=== PATIENT | female | born 1990 | race Caucasian/White ===

== ENCOUNTER → 2024-03-14 13:31 | Outpatient (REF) | payer OTHER, SELFPAY | LOC: PNTC 13:31 | PROVIDERS: ATTENDING PHYSICIAN Obstetrics & Gynecology | DX: O99.210 Obesity complicating pregnancy, unspecified trimester (principal) | CPT/HCPCS: 76805 ==

== ENCOUNTER → 2024-08-17 14:25 | Outpatient (REF) | payer OTHER, SELFPAY | LOC: PNTC 14:25 | PROVIDERS: ATTENDING PHYSICIAN Obstetrics & Gynecology | DX: O14.90 Unspecified pre-eclampsia, unspecified trimester (principal) | CPT/HCPCS: 59025 ==

== ENCOUNTER → 2024-08-23 08:54 | Outpatient (REF) | payer OTHER, SELFPAY | LOC: PNTC 08:54 | PROVIDERS: ATTENDING PHYSICIAN Obstetrics & Gynecology | DX: O99.210 Obesity complicating pregnancy, unspecified trimester (principal) | CPT/HCPCS: 59025; 76815 ==

== ENCOUNTER 2024-08-23 09:53 | Inpatient (IN) | payer OTHER, SELFPAY ==
[2024-08-23 09:56] VITALS: BP 123/77; BMI 42.4
[2024-08-23] MEDS: LR 1000 IV (15:00)
[2024-08-23 15:23] LABS: % Basophils 0.2 % (0-2); % Eosinophils 0.6 % (0-6); % Immature Granulocytes 1.2 % (0-0.5); % Lymphocytes 15.8 % (20.5-51.1); % Monocytes 5.5 % (1.7-9.3); % Neutrophils 76.7 % (42.2-75.2); Absolute Eosinophils 0.1 10^3/uL (0-0.7); Absolute Immature Granulocytes 0.1 10^3/uL (0-0.05); Absolute Lymphocytes 1.5 10^3/uL (1.2-3.4); Absolute Monocytes 0.5 10^3/uL (0.1-0.6); Absolute Neutrophils 7.3 10^3/uL (1.4-6.5); Hematocrit 33.9 % (37.0-47.0); Hemoglobin 11.5 g/dL (12.0-16.0); Mean Corp Hgb Conc. 33.9 g/dL (33.0-37.0); Mean Corpuscular Hgb 30.6 pg (27.0-31.0); Mean Corpuscular Volume 90.2 fL (81.0-99.0); Mean Platelet Volume 10.7 fL (7.4-10.4); Nucleated Red Blood Cells % 0 %; Platelet Count 279 10^3/uL (130-400); Red Blood Cell Count 3.76 10^6/uL (4.20-5.40); Red Cell Dist. Width 14.1 % (11.5-14.5); White Blood Cell Count 9.6 10^3/uL (4.8-10.8)
[2024-08-23] MEDS: PITOCIN 30 UNITS/NSS 500 ML IV (15:26)
[2024-08-23] MEDS: SUBLIMAZE 100 MCG EPIDURAL (19:35)
[2024-08-23] MEDS: FENTANYL/BUPIVACAINE 100 EPIDURAL (19:35)
[2024-08-24 04:30] LABS: Hemoglobin 10.5 g/dL (12.0-16.0)
[2024-08-24] MEDS: PRENATAL PLUS 1 TABLET PO (08:18)
[2024-08-25] MEDS: PRENATAL PLUS 1 TABLET PO (09:39)
[2024-08-25] MEDS: FEOSOL 325 MG PO (09:39)
[2024-08-25 11:51] LABS: Syphilis/T. pallidum Ab Reflex Negative (Negative)
== END 2024-08-25 11:03 | disposition home or self-care (01) | DRG 807 ==
LOC: LDRP 09:53
PROVIDERS: ADMITTING PHYSICIAN Obstetrics & Gynecology
PROC: 10E0XZZ Delivery of Products of Conception, External Approach (ICD-10-PCS; 2024-08-23)
PROC: 10907ZC Drainage of Amniotic Fluid, Therapeutic from Products of Conception, Via Natural or Artificial Opening (ICD-10-PCS; 2024-08-23)
DX: O99.284 Endocrine, nutritional and metabolic diseases complicating childbirth (principal); Z37.0 Single live birth; O69.81X0 Labor and delivery complicated by cord around neck, without compression, not applicable or unspecified; O99.214 Obesity complicating childbirth; E03.9 Hypothyroidism, unspecified; Z3A.39 39 weeks gestation of pregnancy; Z62.810 Personal history of physical and sexual abuse in childhood; Z80.3 Family history of malignant neoplasm of breast
CPT/HCPCS: 36415; 85014; 85018; 85025; 86780; 86850; 86900; 86901

== ENCOUNTER 2024-09-18 08:59 | Emergency (ER) | payer OTHER, SELFPAY ==
[2024-09-18 09:00] VITALS: BP 137/89
--- NOTE | 2024-09-18 09:10 | ED.GENMED ---
History of Present Illness
General
Chief Complaint: Breast Problem
Source: patient
Exam Limitations: none
Time Seen by Provider: 09/18/24 09:10
Nursing documentation reviewed up to this point in time: agreed with
History of Present Illness
History of Present Illness:
Patient is a 34-year-old female who presents to the ER complaining of left breast pain. She reports she recently delivered and has a 3-week-old baby and has been nursing and pumping however over the weekend started tenderness increased pain with
breast-feeding and pumping. She woke up with a fever today of 101.8 and did feel feverish. She has not taken anything for fever. She denies any drainage from her nipple. No prior history of mastitis in the past. She does have an [id number] at
home.
Review of Systems
Review of Systems
Allergies reviewed?: Yes
All Other Systems: ROS reviewed and negative except as documented in HPI and ROS
Constitutional: Reports fever
Respiratory: Reports no symptoms
Cardiac: Reports no symptoms
ABD/GI: Reports no symptoms
Musculoskeletal: Reports no symptoms
Skin: Reports other
Phy Exam
General Physical Exam
General Presentation: no apparent distress
General age: appears stated age
General Skin: warm and dry
General Habitus: normal
General Mental: alert
General Hydration: appears well hydrated
Neurological Exam
Neurological Exam: alert and oriented x3
Musculoskeletal Exam
Musculoskeletal Exam: full ROM
Skin Exam
Skin Exam: normal color, warm/dry and other (left breast with very small area of erythema to 9 o clock region at left breast slight scattered erythema to upper breast no palpable abscess ; no induration no nipple drainage )
Psychiatric Exam
Psychiatric Exam: normal mood/affect
Course
Orders/Labs/Results
Orders:
Orders
09/18/24 09:51
Acetaminophen [Tylenol] 650 mg PO NOW STA
09/18/24 09:53
Cephalexin Monohydrate [Keflex] 500 mg PO NOW STA
Vital Signs
Initial and Last Documented VS:
Initial Vital Signs
Temp Pulse Resp BP Pulse Ox
100.6 F H 116 16 137/89 97
09/18/24 09:00 09/18/24 09:00 09/18/24 09:00 09/18/24 09:00 09/18/24 09:00
Last Documented Vital Signs
Temp Pulse Resp BP Pulse Ox
100.6 F H 116 16 137/89 97
09/18/24 09:00 09/18/24 09:00 09/18/24 09:00 09/18/24 09:00 09/18/24 09:00
Senior Front End Developer consulted with Physician
Senior Front End Developer consulted with physician?: Yes
Name of Physician Consulted: Dane
MDM/Problems Addressed
Differential Diagnosis Includes:
Not limited to mastitis less likely abscess
MDM/Problems Addressed:
Symptoms are consistent with mild mastitis. Patient has very minimal erythema to left breast. She has a low-grade temperature however she is nontoxic no palpable abscess. Case discussed with ED physician will DC on Kefex 4 times a day will give
prescription for 7 days however with close outpatient follow-up with [facility] prior to 7 days. Patient with no risk factors for MRSA. Pt non toxic appearing. d/c with ED physician
*Critical Care Note
Total Time (30-74mins, 75-104mins- exclusive of procedures): Not Applicable
ED Attending Note
-
Portions of this chart may have been created with voice recognition software.� Occasional wrong word or��sound alike� substitutions may have occurred due to the inherent limitations of voice recognition software.
Discharge Plan
Departure
Patient Disposition: Home (Routine Discharge)
Date of Disposition: 09/18/24
Time of Disposition: 10:11
Patient with high blood pressure during this ER visit?: Yes
Condition: Fair
Covid-19: Not Applicable
Discharge Problem:
Mastitis
Instructions: Common problems, Mastitis
Prescriptions:
New
cephalexin 500 mg capsule
500 mg PO Q6H Qty: 28 0RF
No Action
vit-iron fum-folic ac [ Tablet] 28 mg iron- 800 mcg Tablet
1 tab PO DAILY
ferrous sulfate [FeroSul] 325 mg (65 mg iron) Tablet
325 mg PO DAILY Qty: 0 0RF
sennosides-docusate sodium 8.6-50 mg Tablet
1 tab PO DAILYPRN PRN (Reason: constipation) Qty: 0 0RF
ibuprofen 600 mg Tablet
600 mg PO Q6HPRN PRN (Reason: moderate pain/cramps) Qty: 30 0RF
acetaminophen 325 mg Tablet
650 mg PO Q4HPRN PRN (Reason: mild pain) Qty: 0 0RF
calcium carbonate [Calcium Antacid] 200 mg calcium (500 mg) Tablet,Chewable
400 mg PO Q6HPRN PRN (Reason: indigestion) Qty: 0 0RF
Referrals:
NONE,* [Family Provider] -
Activity Restrictions/Additional Instructions:
As discussed antibiotic prescription was sent to your pharmacy take as directed every 6 hours for the next 7 days. Warm compresses to the affected area ,gentle massage, hot showers. Continue to frequently nurse and pump. Please follow-up with
your [facility] for check in the next 2 to 3 days. Return if any worsening of symptoms of worsening pain swelling redness fever chills.
Interventions
Interventions:
*Risk Screen - Suicide Last Done: 09/18/24 09:00
*General Assessment Last Done: 09/18/24 09:00
*ED COVID-19 Vaccine History Last Done: 09/18/24 09:00
ED-Skin Assessment Last Done: 09/18/24 09:30
Discharge Date and Time
Print Language: HAITIAN
[2024-09-18 09:32] VITALS: BMI 39.3
[2024-09-18] MEDS: KEFLEX 500 MG PO (10:10)
[2024-09-18] MEDS: TYLENOL 650 MG PO (10:10)
[2024-09-18 10:15] VITALS: BP 113/71
== END 2024-09-18 10:41 | disposition home or self-care (01) ==
LOC: EMR 08:59
PROVIDERS: EMERGENCY PHYSICIAN Emergency Medicine
DX: N61.0 Mastitis without abscess (principal)
CPT/HCPCS: 99282

== ENCOUNTER 2025-03-07 18:59 | Emergency (ER) | payer BC, SELFPAY ==
[2025-03-07 19:01] VITALS: BP 124/80
--- NOTE | 2025-03-07 22:25 | ED.GENMED ---
History of Present Illness
General
Chief Complaint: Ear Problem
Source: patient
Exam Limitations: none
Time Seen by Provider: 03/07/25 22:05
Nursing documentation reviewed up to this point in time: agreed with
History of Present Illness
History of Present Illness:
This is a 35-year-old woman with no significant past medical history presents with right ear pain, right posterior buccal mucosal irritation that began yesterday. She was concerned tonight when she noticed a lump behind her right ear. She has not
had a fever, no sore throat, no nasal congestion, no headache. Mild pain with chewing on the right side of her mouth but denies overt dental pain. No history of similar episodes in the past. She has not taken anything for discomfort.
She takes no medicines on a daily basis.
Denies risk of . Her menstrual period began today.
Past History
Past History
ED Past Medical History: None
ED Past Surgical History: Orthopedic and Tonsilectomy
Social History
Tobacco: Non-smoker
Personal:
Living: with family
Employment: Employed
Family History
Family History: Other (Noncontributory)
Phy Exam
Physical Exam
Physical Exam:
GENERAL: 35-year-old woman appears her stated age, bright and alert, pleasant, appears in no acute distress. Vital signs within normal limits.
EYE: pupils equal. anicteric
NECK: Supple, nontender, no meningismus, no significant adenopathy.
ENT: posterior pharynx is clear, oral mucosa is moist. There is a superficial ulcer/superficial abrasion right posterior buccal mucosa that is mildly to moderately locally tender to palpation. There is no soft tissue swelling. No overt dental
tenderness nor evidence of dental caries. Evidence of dental caries. There is mild tenderness right cheek, anterior to the TMJ. No facial swelling nor erythema. TM clear b/l, nares patent. There is a small, mobile, discrete nontender nodule
right posterior auricular.
CARDIAC: Regular rate and rhythm. no murmur.
LUNGS: Clear breath sounds bilaterally, no acute respiratory distress, no wheezes/rales/rhonchi
ABDOMEN: Soft, nondistended, without focal tenderness
NEUROLOGICAL: Alert and oriented x3, no focal neuro deficits. Gait is gallegos and steady.
SKIN: Warm and dry, normal color, skin intact. No rash.
MUSCULOSKELETAL: No C/C/E. peripheral pulses are full and equal b/l. No palpable tenderness.
PSYCH: Normal and appropriate interaction.
Course
Orders/Labs/Results
Orders:
Orders
03/07/25 22:24
Ibuprofen [Motrin] 800 mg PO NOW STA
Vital Signs
Initial and Last Documented VS:
Initial Vital Signs
Temp Pulse Resp BP Pulse Ox
97.9 F 68 18 124/80 95
03/07/25 19:01 03/07/25 19:01 03/07/25 19:01 03/07/25 19:01 03/07/25 19:01
Last Documented Vital Signs
Temp Pulse Resp BP Pulse Ox
97.9 F 68 18 124/80 95
03/07/25 19:01 03/07/25 19:01 03/07/25 19:01 03/07/25 19:01 03/07/25 19:01
MDM/Problems Addressed
Differential Diagnosis Includes:
Patient presents with 24-hour history of right ear pain that appears to be referred in nature, likely related to oral mucosal abrasion/superficial ulcer. Abrasion appears trauma related and patient admits to inadvertently biting the inside of her
cheek.
She is also noted to have small nodule right posterior auricular that appears to be a small sebaceous cyst in nature. There is no fluctuance nor evidence of infection. No adenopathy. No evidence of otitis media.
Will medicate for pain with ibuprofen and will treat oral ulceration with a course of Kenalog and Orabase.
Recommend follow-up with PCP for recheck.
*Pulse Oximetry
Patient hypoxic: no
*Critical Care Note
Total Time (30-74mins, 75-104mins- exclusive of procedures): Not Applicable
ED Attending Note
-
Portions of this chart may have been created with voice recognition software.� Occasional wrong word or��sound alike� substitutions may have occurred due to the inherent limitations of voice recognition software.
Discharge Plan
Departure
Patient Disposition: Home (Routine Discharge)
Date of Disposition: 03/07/25
Time of Disposition: 22:25
Patient with high blood pressure during this ER visit?: No
Condition: Good
Discharge Problem:
Oral ulcer, posterior auricular sebaceous cyst
Instructions: Epidermal Cyst, Mouth sores, Soft diet
Prescriptions:
New
ibuprofen 800 mg tablet
800 mg PO QIDPRN PRN (Reason: pain, fever) Qty: 30 0RF
triamcinolone acetonide 0.1 % paste
1 applic dental HS PRN (Reason: mouth irritation) Qty: 5 0RF
No Action
vit-iron fum-folic ac [ Tablet] 28 mg iron- 800 mcg Tablet
1 tab PO DAILY
ferrous sulfate [FeroSul] 325 mg (65 mg iron) Tablet
325 mg PO DAILY Qty: 0 0RF
sennosides-docusate sodium 8.6-50 mg Tablet
1 tab PO DAILYPRN PRN (Reason: constipation) Qty: 0 0RF
ibuprofen 600 mg Tablet
600 mg PO Q6HPRN PRN (Reason: moderate pain/cramps) Qty: 30 0RF
acetaminophen 325 mg Tablet
650 mg PO Q4HPRN PRN (Reason: mild pain) Qty: 0 0RF
calcium carbonate [Calcium Antacid] 200 mg calcium (500 mg) Tablet,Chewable
400 mg PO Q6HPRN PRN (Reason: indigestion) Qty: 0 0RF
cephalexin 500 mg capsule
500 mg PO Q6H Qty: 28 0RF
Referrals:
UNKNOWN - PT DOES,NOT KNOW [Family Provider]
Interventions
Interventions:
*Risk Screen - Suicide Last Done: 03/07/25 19:01
*General Assessment Last Done: 03/07/25 19:01
Discharge Date and Time
Print Language: PORTUGUESE
[2025-03-07] MEDS: MOTRIN 800 MG PO (22:30)
== END 2025-03-07 22:38 | disposition home or self-care (01) ==
LOC: EMR 18:59
PROVIDERS: EMERGENCY PHYSICIAN Emergency Medicine
DX: K12.1 Other forms of stomatitis (principal); L72.3 Sebaceous cyst
CPT/HCPCS: 99283

== ENCOUNTER 2025-03-21 22:11 | Emergency (ER) | payer BC, SELFPAY ==
[2025-03-21 22:13] VITALS: BP 133/82
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
[2025-03-22 00:29] VITALS: BP 128/78
== END 2025-03-22 00:33 | disposition home or self-care (01) ==
LOC: EMR 22:11
PROVIDERS: EMERGENCY PHYSICIAN Emergency Medicine
DX: S86.911A Strain of unspecified muscle(s) and tendon(s) at lower leg level, right leg, initial encounter (principal); X50.1XXA Overexertion from prolonged static or awkward postures, initial encounter; R55 Syncope and collapse
CPT/HCPCS: 99284; 73590; 93005